=== PATIENT | male | born 1945 | race Caucasian/White ===

== ENCOUNTER 2022-03-07 11:54 | Outpatient (CLI) | payer MEDICARE, SELFPAY ==
--- NOTE | 2022-03-07 12:09 | ECG_ITS ---
Measurements Intervals [place] Rate: 98 P: 83 VT: 173 QRS: 75 QRSD: 98 T: 57 QT: 336 QTc: 429 Interpretive Statements SINUS RHYTHM VENTRICULAR PREMATURE COMPLEXES POSSIBLE LEFT ATRIAL ENLARGEMENT BORDERLINE R WAVE PROGRESSION, ANTERIOR LEADS BASELINE ARTIFACT- I, II, III, AVR, AVL, AVF, V4 BORDERLINE ECG NO PREVIOUS ECG AVAILABLE FOR COMPARISON Electronically Signed On 03-07-2022 17:31:41 [employer] by Jose Tillman D.O.
== END 2022-03-07 11:55 | disposition home or self-care (01) ==
LOC: ANHSURGERY 11:57
PROVIDERS: PCP Family Medicine; Visit Provider Urology
DX: E78.00 Pure hypercholesterolemia, unspecified (principal); Z01.818 Encounter for other preprocedural examination; R94.31 Abnormal electrocardiogram [ECG] [EKG]
CPT/HCPCS: 93005

== ENCOUNTER 2022-03-10 00:55 | Day surgery (SDC) | payer MEDICARE, SELFPAY ==
--- NOTE | 2022-03-01 07:27 | P.HP_ITS ---
History of Present Illness History of Present Illness Consent: Risks, benefits, and alternatives have been discussed and questions answered. Patient agrees to proceed with procedure. Chief complaint: Lt Spermatocele Narrative: Dave Pineda is a 76 year old male with a 5 year history of a swelling in his left scrotum. Examination and ultrasonography are consistent with a spermatocele. After he has completed radiation for lung cancer he now elects for a spermatocele likely. He is aware of the risk including, but not limited to, recurrent spermatoceles, recurrent hydroceles and scrotal hematoma Review of Systems Review of Systems: All systems reviewed & are unremarkable except as noted in HPI and below [facility] Family History Family History (Updated 11/14/17 @ 07:35 by DOCTOR UNKNOWN) Sibling Patient's sister is in good health Family history of cardiovascular disease Family history of Alzheimer's disease, Onset Age: 75 Malignant neoplasm of prostate, Onset Age: 74 Mother Acute myocardial infarction, Onset Age: 84 Father Family history of chronic obstructive pulmonary disease Family history of lung cancer Social History Social History Smoking status: Heavy tobacco smoker Meds Home Medications and Allergies Home Medications Medication Instructions Recorded Confirmed Type albuterol sulfate 2.5 mg/3 mL 2.5 mg (3 mL) inhalation Q6H #90 mL 06/24/19 Rx (0.083 %) solution for nebulization Allergies Allergy/AdvReac Type Severity Reaction Status Date / Time No Known Allergies Allergy Unverified 02/14/19 13:22 Exam Const: General: no acute distress Resp: Effort & Inspection: normal respiratory effort GI: Inspection: non-distended GI Palp: No abdominal tenderness and No Guarding due to palpation present (GI) Auscultation: normal bowel sounds : Scrotum: scrotal swelling Assessment and Plan Assessment and plan (1) Spermatocele: Code(s): N43.40 - Spermatocele of epididymis, unspecified Status: Acute Assessment and Plan: * left spermatocele ectomy
[2022-03-02 09:40] VITALS: BMI 21.5
--- NOTE | 2022-03-02 09:52 | PC.NURSE ---
PRE-OP INSTRUCTIONS, PLEASE READ CAREFULLY Report to the Outpatient Waiting Room, entrance under the green pavilion located off [facility], at time _0630_ on date _03/10/22_. Planned Procedure Time: _0830_. Time changes happen often and if your time is changed the preop area will call you the afternoon before. - You and your visitor will be asked to self-screen and do not enter if you have any COVID symptoms. - Only one visitor is requested with a max of two and NO children visitors are allowed at this time. - The patient visitor may be requested to leave or wait in car when not with patient due to distancing restrictions. - A mask is optional within the hospital. Patients may have clear liquids (water, carbonated beverages, clear teas, apple juice) until 3 hours prior to surgery (0530 AM) with a maximum of 20 ounces. - No food from midnight until time of surgery Take the following medications with a SIP of water the morning of surgery: _INHALERS_ Medications to discontinue per ANESTHESIA - _MULTIVITAMIN 3 DAYS PRIOR TO SURGERY, Date to take last dose 03/06/22_ Please no make-up, nail khmer, hairspray, perfume, deodorant, or body powder the day of surgery. No jewelry (including any body piercings) or valuables the day of surgery, leave them at home. Please take a shower or bath the night before, or the morning of, surgery with an antibacterial soap. Wear comfortable, loose fitting clothing. - Jewelry must be removed prior to entering the operating room. Rings and piercings that are not removed may be cut off. - The hospital will not accept responsibility for valuables. - Please leave all valuables, including medications, at home the day of surgery. If you are going home after surgery, a licensed laundry route driver must drive you home. - NO public transportation without another adult if you receive anesthesia. - We recommend that an adult stay with you for 24 hours following discharge. - We also recommend that you do not drive, make important decision, drink alcoholic beverages, or take any drugs that were not prescribed by your health care provider for at least 24 hours after your discharge time. Follow any additional instructions given to you from your surgeon. If you or anyone in your household have experienced Covid symptoms in the past week, please notify your surgeon or the nurse liaison at the phone number below for possible testing. Telephone instructions given to ____PT and asked if any additional questions and then verbalized understanding. Patient advised to call surgeon office or pre surgery nurse liaison [phone] if any additional questions.
[2022-03-10] VITALS (8 sets, daily range): BP systolic 120–143; BP diastolic 58–74; PULSE 77–108; RESP 14–20; TEMP 36.3–36.6; O2SAT 90–100
--- NOTE | 2022-03-10 06:45 | WPDHPUPDATE1 ---
History and Physical Update Update Date/Time: 03/10/22 06:45 History and Physical has been reviewed, including an updated exam of the patient. There are NO changes in the patient's condition. Risks, benefits, and alternatives have been discussed and questions answered. Patient agrees to proceed with procedure.
[2022-03-10] MEDS: LACTATED RINGERS 1,000 ML 30 ML IV CONT (07:20)
--- NOTE | 2022-03-10 07:41 | P.PNAN_ITS ---
Anes - Initial Pre Proc Eval Procedure: Operation Date: 03/10/22 08:30 Proposed Procedures p Left Spermatocelectomy - Dylon Arreola MD Date/Time: 03/10/22 07:41 Surgeon: Dylon Arreola MD Pre Op Diagnosis: Lt Spermatocele Patient Data Age: 76 Gender: M Height: 1.78 m Weight: 68.35 kg Last Vital Signs Temp 36.3 C L 03/10/22 07:30 Pulse 101 H 03/10/22 07:30 Resp 20 03/10/22 07:30 BP 136/63 03/10/22 07:30 Pulse Ox 90 03/10/22 07:30 O2 Del Method Room Air 03/10/22 07:30 Allergies Allergy/AdvReac Type Severity Reaction Status Date / Time No Known Allergies Allergy Unverified 03/10/22 06:43 Home Medications Medication Instructions Recorded Confirmed Type albuterol sulfate 2.5 mg/3 mL 2.5 mg inhalation Q6H PRN Wheezing 03/02/22 03/10/22 History (0.083 %) solution for nebulization fluticasone 250 mcg-salmeterol 50 2 inh inhalation BID 03/02/22 03/10/22 History mcg/dose blistr powdr for inhalation (Wixela Inhub) multivitamin 1 tablet PO DAILY 03/02/22 03/10/22 History simvastatin 20 mg tablet 20 mg HS 03/02/22 03/10/22 History tiotropium bromide 1.25 2 inh inhalation QAM 03/02/22 03/10/22 History mcg/actuation mist for inhalation (Spiriva Respimat) Patient hx anesthesia problems: none Family hx anesthesia problems: none Results Review: All pre-operative results and documents have been reviewed as part of the pre- operative evaluation. COUNTS INCLUDE 234 BEDS AT THE [facility] Family History Family History Sibling Patient's sister is in good health Family history of cardiovascular disease Family history of Alzheimer's disease, Onset Age: 75 Malignant neoplasm of prostate, Onset Age: 74 Mother Acute myocardial infarction, Onset Age: 84 Father Family history of chronic obstructive pulmonary disease Family history of lung cancer Social History Social History Smoking packs per day: 0.5 Smoking cigarettes per day: 10.0 Years smoked: 60 Smoking pack-years: 30.00 Smoking status: Current every day smoker Tobacco type: cigarettes Second hand tobacco smoke exposure: Yes Alcohol intake: current Alcohol use details: STATES VERY RARELY MAYBE 3 DRINKS IN LAST 2 YRS Substance use: never Substance use type: does not use Living arrangements: with family Spiritual care concerns: No Anes - Eval Final PreProcedure Day of Procedure 03/10/22 07:41 Patient weight: normal Heart: regular rate and rhythm Lungs: clear to auscultation Airway: Mallampati scale class II and other (edentulous) Neurological: alert and oriented Last oral intake: >/= 8 hours ASA classification: IV Emergent: no Anesthetic plan: proceed Anesthesia type and monitoring: general LMA and standard monitoring Results Review: All pre-operative results and documents have been reviewed as part of the pre- operative evaluation. Informed Consent: The patient's anesthetic plan and its attendant risks and benefits were discussed with the patient/family/POA. Questions were solicited and answers provided to the satisfaction of the patient/family/POA.
[2022-03-10] MEDS: ceFAZolin 2 GM/D5W 50 ML 2 GM/50 ML BAG IVPB (08:26)
[2022-03-10] MEDS: LIDOCAINE 1% BUFFERED WITH 8.4% SODIUM BICARB 1 ML SYRINGE 30 ML INFILTRATE (09:12)
--- NOTE | 2022-03-10 09:21 | P.OP_ITS ---
Procedure Note - Detailed Date of Procedure 03/10/22 Pre-op Diagnosis Lt Spermatocele Post-op Diagnosis Same Procedure Performed Left spermatocelectomy Surgeon Dylon Arreola MD Anesthesia General Description of Procedure The patient was brought to the operative suite where he was prepped and draped in routine sterile fashion while in a supine position after the uneventful induction of a general LMA anesthetic. An incision was made in the median raphe of the scrotum and dissection was carried into the left tunica vaginalis. There is no appreciable hydrocele but a moderate-large left spermatocele arising from the epididymis. This spermatocele is dissected from the spermatic cord and testicle to its origin from the epididymis. It is transected at its origin with care taken to avoid any injury to the testicle or epididymis. Care was taken to avoid compromise to vessels in the spermatic cord. The testicle was examined and found to be both visibly and palpably normal. The testicle was restore returned to an orthotopic positioned and pexed in a triangulated fashion with 4- 0 Prolene. The dartos muscle was closed with a running 4-0 chromic and the skin was likewise closed with a running 4-0 chromic. Estimated blood loss throughout this procedure was 20cc. Patient tolerated the procedure well and was taken to the recovery room in good condition. Estimated Blood Loss 20 Pathology Yes Complications No immediate complications Condition Stable Disposition PACU
[2022-03-10] MEDS: oxyCODONE HCL (*CRX) 5 MG TAB IR PO (10:20)
== END 2022-03-10 10:48 | disposition home or self-care (01) ==
PROVIDERS: PCP Family Medicine; Visit Provider Urology
PROC: (CPT 54840; principal; 2022-03-10 08:30)
DX: N43.41 Spermatocele of epididymis, single (principal); Z79.51 Long term (current) use of inhaled steroids; F17.210 Nicotine dependence, cigarettes, uncomplicated; Z85.118 Personal history of other malignant neoplasm of bronchus and lung; Z92.3 Personal history of irradiation
CPT/HCPCS: 54840; 88304; 93005; A9270; J0690; J1100; J2405; J2704; J3010; J7120

== ENCOUNTER 2023-10-27 12:51 | Outpatient (CLI) | payer MEDICARE, SELFPAY ==
--- NOTE | 2023-10-27 19:11 | WPDSIXMINUTE ---
Six Minute Walk Procedure Procedure Performed Pulmonary Stress Test (6 min walk) Six Minute Walk Six Minute Walk: DATE OF SERVICE: 10/27/2023 REQUESTING: Abdoul Dunn MD REASON FOR TESTING: rehab evaluation SIX MINUTE WALK This patient had oxygen at home for nocturnal use. This test was conducted per ATS guidelines. He was tested while breathing room air. No walking aid. The initial saturation was 92%, and initial heart rate was 89 bpm. The patient walked without stopping, completing 1000 feet/304.8 meters. The lowest saturation was 85% at 4 minutes with heart rate 116. Hypoxemia was persistent, 86% at 5 minutes and 86% at 6 minutes with heart rate 119 beats per minute. He recovered with a saturation 94% after resting 2 minutes with heart rate returning to baseline, 89 bpm. IMPRESSION: This is an abnormal study with arelis hypoxemia to 85%-86% at the end of 4 minutes persisting until the end of 6 minutes. He qualifies for supplemental oxygen with exertion. He needs to have a home oxygen evaluation to determine amount of oxygen required to maintain saturation 88% and above with exertion. Yudith Soto MD
== END 2023-10-27 12:52 | disposition home or self-care (01) ==
PROVIDERS: PCP Family Medicine
DX: J44.9 Chronic obstructive pulmonary disease, unspecified (principal); R94.2 Abnormal results of pulmonary function studies
CPT/HCPCS: 94618; J2405

== ENCOUNTER 2024-03-01 13:30 | Outpatient (RCR) | payer MEDICARE, SELFPAY | END 2024-03-01 23:59 | disposition home or self-care (01) | LOC: ANHCPREHAB 13:30 | PROVIDERS: PCP Family Medicine | DX: J44.9 Chronic obstructive pulmonary disease, unspecified (principal) | CPT/HCPCS: 94625 ==

== ENCOUNTER 2024-04-26 13:30 | Outpatient (RCR) | payer MEDICARE, SELFPAY | END 2024-04-26 14:48 | disposition home or self-care (01) | LOC: ANHCPREHAB 13:30 | PROVIDERS: PCP Family Medicine | DX: J44.9 Chronic obstructive pulmonary disease, unspecified (principal) | CPT/HCPCS: 94625 ==

== ENCOUNTER 2024-10-08 13:30 | Outpatient (RCR) | payer MEDICARE, SELFPAY ==
[2024-06-11 13:37] VITALS: BP 130/68; PULSE 91; RESP 18; O2SAT 96
[2024-06-11 14:10] VITALS: PULSE 91
== END 2024-10-08 23:59 | disposition home or self-care (01) ==
LOC: ANHCPREHAB 13:30
PROVIDERS: PCP Family Medicine; Visit Provider Internal Medicine Pulmonary Disease
DX: J44.9 Chronic obstructive pulmonary disease, unspecified (principal)
CPT/HCPCS: 94625

== ENCOUNTER 2024-11-26 13:30 | Outpatient (RCR) | payer MEDICARE, SELFPAY ==
[2024-10-10 00:04] VITALS: BP 130/68; PULSE 91; RESP 18; O2SAT 96
== END 2024-12-06 14:06 | disposition home or self-care (01) ==
LOC: ANHCPREHAB 13:30
PROVIDERS: PCP Family Medicine; Visit Provider Internal Medicine Pulmonary Disease
DX: J44.9 Chronic obstructive pulmonary disease, unspecified (principal)
CPT/HCPCS: 94625; G0239

== ENCOUNTER 2025-03-19 18:30 | Emergency (ER) | payer MEDICARE, SELFPAY ==
--- OUTSIDE RECORDS SUMMARY | 2025-03-19 13:00 | XMS_ITS | Encounter Summary ---
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 Procedure visit [facility] [address] [place] [id number] Debbi Sousa Sensorineural hearing loss (SNHL) of both ears (Primary Dx); Tinnitus of both ears Social History Tobacco Use Types Packs/Day Years Used Date Smoking Tobacco: Former Cigarettes 0.5 50 Q uit: 05/17/2024 Passive Smoke Exposure: Past Smokeless Tobacco: Never Comments:Used to smoke up to 2ppd Alcohol Use Standard Drinks/Week Comments Yes 0 (1 standard drink = 0.6 oz pur e alcohol) [facility] Utilities Answer Date Recorded In the past 12 months has e electric, gas, oil, or water company threatened to shut off services in your home? No 05/27/2024 Social Connection and Isolation Panel Answer Date Recorded In a typical week, how many times do you talk on the phone with family, friends, or neighbors? Three times a week 05/27/2024 How often do you get togethe r with friends or relatives? Three times a week 05/27/2024 How often do you attend chur ch or druze services? Never 05/27/2024 Do you belong to any clubs o r organizations such as gnosticist groups, unions, fraternal or athletic groups, or school groups? No 05/27/2024 How often do you attend meet ings of the clubs or organizations you belong to? Never 05/27/2024 Are you , , di vorced, , never , or living with a partner? 05/27/2024 Overall Financial Resource Strain (CARDIA) Answe r Date Recorded How hard is it for you to pa y for the very basics like food, housing, medical care, and heating? Not hard at all 05/27/2024 PHQ-2 Answer Date Recorded PHQ-2 Total Score (If total score is 3 or more points, staff should administer the PHQ-9) 0 08/15/2024 Hunger Vital Sign Answer Date Recorded Within the past 12 months, y ou worried that your food would run out before you got the money to buy more. Never true 05/27/19 25 Ran Out of Food in the Last Year Not on file 05/27/2024 PRAPARE - Transportation Answer Date Re corded In the past 12 months, has l ack of transportation kept you from medical appointments or from getting medications? No 05/11 In the past 12 months, has l ack of transportation kept you from meetings, work, or from getting things needed for daily living? No 05/27/2024 Housing Stability Vital Sign Answer Brandon e Recorded In the last 12 months, was t here a time when you were not able to pay the mortgage or rent on time? No 05/27/2024 In the past 12 months, how m any times have you moved where you were living? 0 05/27/2024 At any time in the past 12 m [facility], were you homeless or living in a long-term (including now)? No 05/27/2024 AUDIT-C Answer Date Recorded Q1: How often do you have a drink containing alc ohol? Monthly or less 01/06/2025 Q2: How many drinks containi ng alcohol do you have on a typical day when you are drinking? 1 or 2 01/06/2025 Q3: How often do you have si x or more drinks on one occasion? Never 01/06/2025 Personal Safety Answer Date Recorded Have you ever been in or are you currently in a harmful physical or emotional relationship or is someone making you feel afraid or unsafe? Denies 11/08/2024 Sex and Gender Information Value Date Recorded Sex Assigned at Not on file Legal Sex Male 8:24 AM CDT Gender Identity Not on file Sexual Orientation Not on file documented as of this encounter Procedure Notes * Debbi Sousa - 03/19/2025 1:00 PM CST Procedures Debbi Guido, [facility] PATIENT: Dave Fofana : 1945 TYPE OF SERVICE: Audiologic Evaluation DATE OF SERVICE: 03/19/2025 Referring physician: Patient referred by Dr. Ferny Worthy History: Patient reported presence of constant, ringing tinnitus in both ears. Patient denied personal concern with his hearing, but stated that his complains that he has trouble hearing often. He denied aural pain/pressure or dizziness at this time. Otoscopy: Ear canals partially occluded with cerumen bilaterally. Tympanometry: Unable to maintain effective seal for either ear. Audiometry: Pure tone testing revealed mild rising to normal sloping to severe sensorineural hearing loss for the right ear and mild rising to normal sloping to profound sensorineural hearing loss for the left ear. Word Recognition Score (WRS) in the right ear is 68%, WRS in the left ear is 52%. Counseling: Patient was counseled on audiogram results. Recommendations: -Patient will follow-up with Dr. Ferny Worthy for test results and recommendations. -Repeat testing per Doctor request. -Schedule hearing aid evaluation after receiving medical clearance and patient is motivated. OMER SERVICE SUPERVISOR documented in this encounter Plan of Treatment Not on file documented as of this encounter Visit Diagnoses Diagnosis Sensorineural hearing loss (SNHL) of both ears- Primary Tinnitus of both ears Unspecified tinnitus documented in this encounter Care Teams Insurance Professional Relationship Specialty Start Date End Date Abdoul Dunn MD [address] [id number] PCP - General Family Medicine 01/06/25 [place] [address] [place] [address] [phone] Consulting Physician Pulmonary Disease 11/04/24 Tian Davis MD [facility] [address] Radiation Oncologist Radiation Oncology 12/31/24 documented as of this encounter
--- OUTSIDE RECORDS SUMMARY | 2025-03-19 13:30 | XMS_ITS | Encounter Summary ---
Author Organization [facility] Address [address] [place] [address] Phone Care Team Providers Care Associate Veterinarian Name Role Phone Shreya Ramirez MD Unavailable [phone] Tian Davis MD Unavailable [phone] Abdoul Dunn MD Primary Care Provider Reason for Visit * Reason Comments Tinnitus X 1 year Encounter Details Date Type Department Care Team (Late st Contact Info) Description 03/19/2025 1:30 PM MANUFACTURING SUPERVISOR Office Visit [facility] [address] [place] [phone] Ferny Worthy MD [address] [place] [address] [place] [address] Tinnitus of both ears (Primary Dx); Sensorineural hearing loss (SNHL) of both ears; Bilateral impacted cerumen Social History Tobacco Use Types Packs/Day Years Used Date Smoking Tobacco: Former Cigarettes 0.5 50 Q uit: 05/17/2024 Passive Smoke Exposure: Past Smokeless Tobacco: Never Comments:Used to smoke up to 2ppd Alcohol Use Standard Drinks/Week Comments Yes 0 (1 standard drink = 0.6 oz pur e alcohol) [facility] Utilities Answer Date Recorded In the past 12 months has [employer], gas, oil, or water company threatened to [...] often do you attend chur ch or cheondoism services? Never 05/27/2024 Do you belong to any clubs o r organizations such as voodoo groups, unions, fraternal or athletic groups, or [...] any time in the past 12 m [facility], were you homeless or living in a retirement (including now)? No 05/27/2024 AUDIT-C Answer Date [...] on file documented as of this encounter Last Filed Vital Signs Vital Sign Reading Time Taken Comments Blood Pressure - - Pulse - - Temperature - - Respiratory Rate 17 03/19/2025 1:39 PM MANUFACTURING SUPERVISOR Oxygen Saturation - - Inhaled Oxygen Concentration - - Weight 70.3 kg (155 lb) 03/19/2025 1:39 PM MANUFACTURING SUPERVISOR Height 177.8 cm (5' 10) 03/19/2025 1:39 PM MANUFACTURING SUPERVISOR Body Mass Index 22.24 03/19/2025 1:39 PM MANUFACTURING SUPERVISOR documented in this encounter Progress Notes * Ferny Worthy MD - 03/19/2025 1:30 PM CST Images from the original note were not included. Dave Fofana is a 79 y.o. male was seen in the office today. Primary care provider is Abdoul Dunn MD . Chief Complaint: Chief Complaint Patient presents with Tinnitus X 1 year HPI: He comes to clinic today for evaluation of ringing in the ears. He also has hearing loss. His complains quite a bit they does not hear well. She asked to talk very loudly. She is urged him to get a hearing test. He is here with his niece today. 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 He was in the [employer]. Afterwards he worked in the [employer]. He feels like his hearing loss has been gradual. I have reviewed past medical, surgical, family history as well as allergies and medications. Review of Systems Review of Systems Constitutional: Negative for chills, fever and unexpected weight change. HENT: Negative for drooling and facial swelling. Eyes: Negative for pain and discharge. Respiratory: Negative for wheezing and stridor. Cardiovascular: Negative for leg swelling. Gastrointestinal: Negative for diarrhea and vomiting. Endocrine: Negative for polydipsia. Genitourinary: Negative for flank pain. Musculoskeletal: Negative for myalgias. Skin: Negative for color change. Allergic/Immunologic: Negative for immunocompromised state. Neurological: Negative for tremors and seizures. Psychiatric/Behavioral: Negative for hallucinations and self-injury. Vital Signs: Resp 17 Ht 177.8 cm (5' 10) Wt 70.3 kg (155 lb) BMI 22.24 kg/m?? PHYSICAL EXAMINATION: GENERAL: Normal NEURO/PSYCH: Affect is normal. Alert and oriented. Extraocular muscles are intact. Cranial Nerves: Cranial nerves II-VII and IX-XII are intact and symmetric. HEAD/FACE: Normocephalic; atraumatic. No facial skin lesions. Facial strength is 5/5 and the face is symmetric. EARS : External ears have no skin lesions. Auricles are regularly set on the head. Hearing is grossly intact. Moderate cerumen impactions. Right: Normal canal. Tympanic membrane intact and mobile. Left: Normal canal. Tympanic membrane intact and mobile. NOSE: External nose has no skin lesions. Nasal dorsum is essentialy midline. Nasal septum is nonobstructive. Inferior and middle turbinates are normal size. No mucosal lesions or polyps are seen on either side. ORAL CAVITY/ OROPHARYNX: Skin of the lips is without lesions. Normal oral vestibule. Oral mucosa ismoist without lesions. Tongue and floor of mouth are without lesions or masses. Palate has no lesions and elevates symmetrically. Tonsils are negative. Oropharynx is clear without erythema or exudate. NECK: Trachea is midline. Thyroid is normal in size with no apparent nodules. Larynx: Base of tongue is symmetric without masses. Larynx was not examined. Salivary Glands: The submandibular glands are non-tender without masses. The parotid glands are non-tender without edema or masses. There is clear saliva flow from Stensen's and Iosco's ducts bilaterally. LYMPHATIC: No cervical lymphadenopathy. MUSCULOSKELATAL: Ambulates without difficulty. Neck full range of motion. RESPIRATORY: Breathing comfortably without audible wheeze, stertor or stridor. AUDIOLOGY - Scan on 03/19/2025 1:24 PM: Audiogram PROCEDURE: Both ears were examined and cleaned under magnification. I used a loop and forceps to remove a large amount of cerumen on both sides. Patient tolerated this well. ASSESSMENT & PLAN: Sensorineural hearing loss (SNHL) of both ears He has moderate to severe mid to high-frequency bilateral sensorineural hearing loss. I talked withhim about this. This has probably due to noise exposure as well as aging. I think he would benefit from hearing aids. We talked about possibly getting them through [facility] or through his [facility] advantage plan. I strongly recommend that. He will look into it. He also will talk with our mixing operator possibly. Bilateral impacted cerumen Both ears were cleaned without difficulty. Quite a bit more wax on the left than on the right. Tinnitus of both ears I talked with the patient about tinnitus. Typically it is due to hearing loss but there are other potential reasons for it. It can occur due to cervical strain or TMJ disorder. Also potentially due to tumors which are usually benign. Unfortunately there is no widely accepted or successful treatmentfor it. There are a lot of bxls-wbx-cusymss remedies which generally do not help and I really do not recommend any of them. In his case I think that his hearing loss is causing this. Sometimes a hearing aid can help. Ferny Worthy MD FACTURING SUPERVISOR documented in this encounter Miscellaneous Notes * Assessment & Plan Note - Ferny Worthy MD - 03/19/2025 2:00 PM MANUFACTURING SUPERVISOR Associated Problem(s): Tinnitus of both ears I talked with the patient about tinnitus. Typically it is due to hearing loss but there are other potential reasons for it. It can occur due to cervical strain or TMJ disorder. Also potentially due to tumors which are usually benign. Unfortunately there is no widely accepted or successful treatmentfor it. There are a lot of aacg-bsb-qjeukpv remedies which generally do not help and I really do not recommend any of them. In his case I think that his hearing loss is causing this. Sometimes a hearing aid can help. FACTURING SUPERVISOR * Assessment & Plan Note - Ferny Worthy MD - 03/19/2025 1:59 PM MANUFACTURING SUPERVISOR Associated Problem(s): Bilateral impacted cerumen Both ears were cleaned without difficulty. Quite a bit more wax on the left than on the right. FACTURING SUPERVISOR * Assessment & Plan Note - Ferny Worthy MD - 03/19/2025 1:59 PM MANUFACTURING SUPERVISOR Associated Problem(s): Sensorineural hearing loss (SNHL) of both ears He has moderate to severe mid to high-frequency bilateral sensorineural hearing loss. I talked withhim about this. This has probably due to noise exposure as well as aging. I think he would benefit from hearing aids. We talked about possibly getting them [facility] or through his Medicare advantage plan. I strongly recommend that. He will look into it. He also will talk with our mixing operator possibly. FACTURING SUPERVISOR documented in this encounter Plan of Treatment Not on file documented as of this encounter Visit Diagnoses Diagnosis Tinnitus of both ears- Primary Unspecified tinnitus Sensorineural hearing loss (SNHL) of both ears Bilateral impacted cerumen Impacted cerumen documented in this encounter Care Teams Associate Veterinarian Relationship Specialty Start Date End Date Abdoul Dunn MD [address] [address] PCP - General Family Medicine 01/06/25 Shreya Ramirez MD [address] [place] [address] [phone] Consulting Physician Pulmonary Disease 11/04/24 Tian Davis MD [address] [facility] [address] [place] [address] Radiation Oncologist Radiation Oncology 12/31/24 documented as of this encounter
--- NOTE | 2025-03-19 18:43 | ED.URI ---
HPI - URI/Sore Throat General Chief Complaint: Upper Respiratory Infection Stated Complaint: ? covid Time Seen by Provider: 03/19/25 18:59 Source: patient and RN notes reviewed Mode of arrival: ambulatory Limitations: no limitations History of Present Illness HPI Narrative: 79-year-old male history of COPD who is oxygen dependent presents with concern for exposure to COVID. He reports his is currently hospitalized and he has been visiting her, she just tested positive for COVID. He denies any symptoms, denies new cough, shortness of breath, stuffy nose, body aches, chills, fever, sweats. MD elicited complaint: other (Exposure COVID) Related Data Home Medications ?Medication ?Instructions ?Recorded ?Confirmed ?Last Taken ?Type albuterol sulfate 2.5 mg/3 mL 2.5 mg inhalation Q6H PRN Wheezing 03/02/22 03/10/22 Unknown History (0.083 %) solution for nebulization fluticasone 250 mcg-salmeterol 50 2 inh inhalation BID 03/02/22 03/10/22 03/10/22 05:00 History mcg/dose blistr powdr for inhalation (Wixela Inhub) multivitamin 1 tablet PO DAILY 03/02/22 03/10/22 03/06/22 History simvastatin 20 mg tablet 20 mg HS 03/02/22 03/10/22 03/06/22 History tiotropium bromide 1.25 2 inh inhalation QAM 03/02/22 03/10/22 03/10/22 05:00 History mcg/actuation mist for inhalation (Spiriva Respimat) B6 0.85 mg-folic 200 tablet PO 03/19/25 Unknown History yfv-Q29-klrpfnC17-yyspit-howryjhqjgjm oral chewable tablet (Neuriva Plus) magnesium oxide 250 mg PO DAILY 03/19/25 03/19/25 Unknown History intysxuyroxv-qriezjd-ogrkz acid 1 tablet PO DAILY 03/19/25 03/19/25 Unknown History 400 mcg-lutein 250 mcg chewable tablet (Centrum Silver) Allergies Allergy/AdvReac Type Severity Reaction Status Date / Time No Known Allergies Allergy Verified 03/19/25 18:49 Review of Systems Review of Systems: CONSTITUTIONAL: Denies malaise, chills, sweats, or fever. EYES: Denies visual changes, redness, or discharge. ENT: Denies new rhinorrhea, congestion, sinus pain, otalgia and sore throat. CARDIOVASCULAR: Denies chest pain, palpitations, or edema. RESPIRATORY: Denies new cough. Denies dyspnea. GASTROINTESTINAL: Denies abdominal pain, nausea, vomiting, diarrhea SKIN: Denies rash or itching. MUSCULOSKELETAL: Denies myalgia. NEUROLOGIC: Denies headache. All systems reviewed & are unremarkable except as noted in HPI and below PMFSH Family History Family History (Updated 06/11/24 @ 13:15 by Nadine Gomez RN) Sibling Family history of cardiovascular disease Malignant neoplasm of prostate, Onset Age: 74 Patient's sister is in good health Family history of Alzheimer's disease, Onset Age: 75 Mother Acute myocardial infarction, Onset Age: 84 Family history of cardiovascular disease Father Family history of lung cancer Family history of chronic obstructive pulmonary disease Acute myocardial infarction Family history of cardiovascular disease Social History Social History Smoking packs per day: 1 Smoking cigarettes per day: 20.0 Years smoked: 65 Smoking pack-years: 65.00 Smoking status: Former smoker Tobacco type: cigarettes Second hand tobacco smoke exposure: No Additional smoking assessment comments: now smokes 4 cigarettes per day Alcohol intake: current Alcohol use details: STATES VERY RARELY MAYBE 3 DRINKS IN LAST 2 YRS Substance use: never Substance use type: does not use Living arrangements: with family Spiritual care concerns: No Comments At time of signature, agree with nursing past medical, surgical, social and family history. There is no relevant family history pertinent to the presenting complaint Exam Narrative: GENERAL: Well-appearing, well-nourished, and in no acute distress. HEAD: Normocephalic EYES: PERRLA, conjunctivae clear ENT: Nares clear. Mucous membranes moist. NECK: Supple. No lymphadenopathy CHEST: Mild scattered wheeze, otherwise Clear to auscultation, breath sounds equal. No rhonchi, rales, or stridor. No respiratory distress, speaks in full sentences. HEART: Regular rate and rhythm. No murmur heard. SKIN: Warm, dry, no rash. NEURO: Alert and oriented x3. PSYCH: Normal mood and affect Course Course Emergency Course: Patient is aware of diagnosis, understands and agrees to treatment plan. Anticipatory guidance given. Patient agrees to follow-up as directed and is aware of reasons to seek care at the emergency department. Portions of this record may have been created with voice recognition software Level of Care: [facility] Visit MDM Differential Diagnosis Differential Diagnosis: I evaluated this patient [facility]. History is obtained from patient who is an independent historian and physical exam was performed.? Available medical records were reviewed. ? Exam findings and relevant testing show no acute concerns or changes; patient is non-toxic appearing and is in no distress. ? Differential diagnosis considered: Villarreal virus, strep pharyngitis, allergic rhinitis, upper respiratory tract infection, sinusitis, rhinosinusitis, nasopharyngitis. viral pharyngitis, otitis media, otitis externa, pneumonia, bronchitis, viral cough syndrome, viral syndrome, and influenza. Differential diagnosis and treatment plan were discussed with the patient. Patient agrees with discussion and after shared medical decision making agrees with plan of care. All questions were answered to the patient's satisfaction. Patient is appropriate for outpatient treatment and follow-up. Discharge Plan Discharge Clinical Impression: Close exposure to COVID-19 virus Patient Disposition: Home Condition: Stable Instructions: COVID-19: Slow the Coronavirus Spread (ED) Additional Instructions: Your rapid COVID test is negative. Antivirals are not indicated for COVID if you do not have a positive test. You can take the following tpnh-viy-idspwld supplements to help support your immune system: Energen-C Zicam or zinc Please wear a mask when exposed to your family member with COVID. I recommend buying a COVID and flu test from the drugstore and testing herself tomorrow and the next day. If you develop any symptoms such as fever, cough, shortness of breath, headache, nasal congestion I would recommend testing your self, if your positive you should be seen by her doctor and at that time he you may be prescribed an antiviral medicine Patient Language: Slovenian Prescriptions: No Action Centrum Silver 400-250 mcg tablet,chewable 1 tablet PO DAILY magnesium oxide 250 mg magnesium tablet 250 mg PO DAILY Neuriva Plus 0.85 mg-200 mcg-1.2 mcg tablet,chewable PO multivitamin Tablet 1 tablet PO DAILY fluticasone propion-salmeterol [Wixela Inhub] 250-50 mcg/dose blister with device 2 inh INHALATION BID simvastatin 20 mg tablet 20 mg HS Spiriva Respimat 1.25 mcg/actuation mist 2 inh INHALATION QAM albuterol sulfate 2.5 mg /3 mL (0.083 %) solution for nebulization 2.5 mg INHALATION Q6H PRN (Reason: Wheezing) Follow-up/Referrals: Mona,Abdoul Pulido MD [Primary Care Provider, Unknown] Time of Disposition: 19:12
[2025-03-19 18:46] VITALS: BP 134/86; PULSE 128; RESP 20; TEMP 37.3; O2SAT 99
[2025-03-19 19:05] LABS: EDCOVIDSCREEN Negative (Negative); EDINFLUASCREEN Negative (Negative); EDINFLUBSCREEN Negative (Negative)
--- OUTSIDE RECORDS SUMMARY | 2025-03-19 21:15 | XMS_ITS | Clinical Summary ---
Author Organization [facility] at [facility] Address [address] [place] [address] Care Team Providers Care White Lead Grinder Name Role Phone Shreya Ramirez MD Unavailable Tian Davis MD Unavailable [phone] Abdoul Dunn MD Primary Care Provider [phone] Allergies No known active allergies Medications multivitamin tablet Take 1 tablet by mouth daily Active magnesium oxide 240 mg magnesium powder in packet Take by mouth Active tiotropium bromide (Spiriva Respimat) 1.25 mcg/actuation inhaler USE 2 INHALATIONS BY MOUTH DAILY 12 g 3 Active Additional Information Patient not taking.Reported on 03/19/2025 fluticasone propion-salmeter oL (ADVAIR DISKUS) 250-50 mcg/dose diskus inhaler Inhale 1 puff 2 (two) times a day Rinse mouth with water after use. Do not swallow. Wixela Active albuterol 2.5 mg/0.5 mL solution for nebulization Take 0.5 mL (2.5 mg total) by nebulization 4 (four) times a day USES BID AT HOME PER REPORT Active ipratropium-albu teroL (DUO-NEB) 0.5-2.5 mg/3 mL nebulizer solutionIndicati ons:Chronic obstructive pulmonary disease, unspecified COPD type (HCC) USE 1 VIAL VIA NEBULIZER EVERY 6 HOURS 3 mL 2 5 Active gabapentin (NEURONTIN) 300 mg capsule Take 1 capsule (300 mg total) by mouth 2 (two) times a day 180 capsule 3 5 Active simvastatin (ZOCOR) 20 mg tablet TAKE 1 TABLET BY MOUTH EVERY NIGHT 100 tablet 1 5 Active Active Problems Problem Noted Date Diagnosed Date Tinnitus of both ears 03/19/2025 Assessment & Plan (03/19/2025 2:00 PM NUB CARD TENDER): I talked with the patient about tinnitus. Typically it is due to hearing loss but there are other potential reasons for it. It can occur due to cervical strain or TMJ disorder. Also potentially due to tumors which are usually benign. Unfortunately there is no widely accepted or successful treatment for it. There are a lot of [id number] remedies which generally do not help and I really do not recommend any of them. In his case I think that his hearing loss is causing this. Sometimes a hearing aid can help. Sensorineural hearing loss (SNHL) of both ears 1 05/20/2024 Assessment & Plan (03/19/2025 1:59 PM NUB CARD TENDER): He has moderate to severe mid to high-frequency bilateral sensorineural hearing loss. I talked with him about this. This has probably due to noise exposure as well as aging. I think he would benefit from hearing aids. We talked about possibly getting them [facility] or through his Medicare advantage plan. I strongly recommend that. He will look into it. He also will talk with our operating room registered nurse possibly. Bilateral impacted cerumen 03/19/2025 Assessment & Plan (03/19/2025 1:59 PM NUB CARD TENDER): Both ears were cleaned without difficulty. Quite a bit more wax on the left than on the right. Spermatocele 02/19/2025 Peripheral polyneuropathy 06/14/2024 Assessment & Plan (06/14/2024 2:26 PM NUB CARD TENDER): Chronic, worsening Initiate gabapentin 300 mg nightly patient instructed to take around 1 hour prior to bed Follow-up in 3 weeks Mediastinal lymphadenopathy 05/24/2024 Exposure to potentially hazardous substance 05/11 Multiple pulmonary nodules 03/28/2023 Seasonal allergic rhinitis due to pollen 022 Other hydrocele 07/21/2021 Medicare annual wellness visit, subsequent 07/02 PVD (peripheral vascular disease) 12/26/2019 Pulmonary nodule 06/13/2018 Assessment & Plan (10/25/2020 11:19 AM CDT): Pulmonary nodules have been stable for more than [address] scan of the chest for lung cancer screening in October 2021. Assessment & Plan (10/17/2019 11:18 AM CDT): Pulmonary nodules have been stable. Will repeat CT scan of the chest in 1 year. Assessment & Plan (04/29/2019 2:27 PM NUB CARD TENDER): Pulmonary nodules have been stable. Discussed with interventional Radiology, nodules are very high risk for pneumothorax. Will continue to monitor closely. Repeat CT scan of the chest in 6 months. Assessment & Plan (03/17/2019 10:27 AM NUB CARD TENDER): Right lower lobe pulmonary nodule is likely infectious. Rest of the pulmonary nodules have been stable since July of this year. PET scan did not show abnormal FDG uptake in the pulmonary nodules including the largest 1 in lingula. I will repeat a CT scan of the chest in 6-8 weeks for follow-up on right lower lobe pulmonary nodule. If it persists or increases in size will need biopsy. Assessment & Plan (08/26/2018 6:43 PM CDT): See note Smoking greater than 40 pack years 10/16/2017 Assessment & Plan (10/25/2020 11:19 AM CDT): Patient was advised to quit smoking. Assessment & Plan (10/17/2019 11:18 AM CDT): Patient is still smoking. He was advised to quit smoking. Assessment & Plan (04/29/2019 2:27 PM NUB CARD TENDER): Patient was advised to quit smoking. Assessment & Plan (03/17/2019 10:28 AM NUB CARD TENDER): Patient has smoked 2 packs per day for 50 years and is still smoking. He was advised to quit smoking. Assessment & Plan (08/26/2018 6:43 PM CDT): Patient advised on smoking cessation. Counseled on ways to cut back and advised to call office if would like advice on methods and medications used to help quit smoking. This is a chronic problem and would always recommend reducing amount of smoking in hopes of quitting completely. OA (osteoarthritis) 11/30/2016 COPD (chronic obstructive pulmonary disease) Assessment & Plan (06/14/2024 2:24 PM NUB CARD TENDER): Chronic, with recent exacerbation resolved Continue close follow-up with pulmonology Continue supplemental home oxygen of 3 L during the day and 5 L at night Continue Spiriva inhaler 1.25 mcg per actuation twice daily and Advair 1 puff twice daily Continue DuoNeb every 6 hours as needed for wheezing or shortness of breath Start ocean saline nasal spray 2 sprays each nostril at least daily to help keep the nasal passages moisturized from supplemental oxygen. Patient should report back to office with worsening symptoms Assessment & Plan (10/25/2020 11:19 AM CDT): Continue with Symbicort, Spiriva and p.r.n. duo nebs. Assessment & Plan (10/17/2019 11:18 AM CDT): Continue with Symbicort and Spiriva. Assessment & Plan (04/29/2019 2:27 PM NUB CARD TENDER): Continue with Advair and Spiriva. Assessment & Plan (03/17/2019 10:28 AM NUB CARD TENDER): Continue with Symbicort, Spiriva and p.r.n. albuterol inhaler. Assessment & Plan (08/26/2018 6:43 PM CDT): Cont inhalers, noO2, , stable Hyperlipidemia 10/28/2015 Resolved Problems Problem Noted Date Diagnosed Date Resolved Date Lung nodule 10/21/2024 02/19/2025 Shortness of breath 05/25/2024 08/16/19 25 Multifocal pneumonia 02/22/2023 024 Cellulitis of multiple sites of head and neck 07/28/19 23 07/27/2022 07/27/2022 Contact dermatitis due to no nmedicinal chemical 07/27/2022 07/27/2022 07/27/2022 Allergic reaction 09/12/2019 07/27/2022 Nail fungus 12/20/2018 07/27/2022 Encounters Date Type Department Care Team Description 03/19/2025 1:30 PM NUB CARD TENDER Office Visit [facility] Otolaryngology [address] [place] [phone] Ferny Worthy MD Tinnitus of both ears (Primary Dx); Sensorineural hearing loss (SNHL) of both ears; Bilateral impacted cerumen 03/19/2025 1:00 PM NUB CARD TENDER Procedure visit [facility] [place] [place] [facility] Otolaryngology [address] [place] [phone] Debbi Sousa Sensorineural hearing loss (SNHL) of both ears (Primary Dx); Tinnitus of both ears 02/19/2025 1:15 PM NUB CARD TENDER Office Visit [facility] Family Medicine at [address] [phone] Abdoul Dunn MD Centrilobular emphysema (Primary Dx); Chronic respiratory failure with hypoxia (HCC); Mixed hyperlipidemia; Multiple pulmonary nodules; Peripheral polyneuropathy; PVD (peripheral vascular disease); Need for immunization against influenza; Encounter for hearing examination, unspecified whether abnormal findings 02/13/2025 Results Follow-Up [facility] Medical [facility] at [address] [phone] Zena Yee PA CBC with auto differential, Comprehensive metabolic panel, Lipid panel, Additional followed-up results: 2 02/12/2025 9:00 AM NUB CARD TENDER Lab [address] [address] Medicare annual wellness visit, subsequent; Chronic obstructive pulmonary disease, unspecified COPD type (HCC); Mixed hyperlipidemia 02/04/2025 10:15 AM CDT Treatment [facility] Office Building 2 Radiation Oncology [address] [place] [phone] Tian Davis MD 02/04/2025 Completion of Therapy [facility] Office Building 2 Radiation Oncology [address] [place] [phone] Tian Davis MD Malignant neoplasm of upper lobe of right lung (HCC) (Primary Dx) 02/04/2025 Orders Only RAD ONC TREATMENTS Miscellaneous, Not In File 02/03/2025 11:30 AM CDT Treatment [facility] Office Building [address] Radiation On[address] [place] [phone] 02/03/2025 Orders Only RAD ONC TREATMENTS Miscellaneous, Not In File 01/31/2025 10:00 AM CDT Treatment [facility] Office Building 2 Radiation Oncology [address] [place] [address] 01/31/2025 OTV [facility] Office [facility] 2 Radiation Oncology [address] [place] [phone] Tian Davis MD 01/31/2025 Orders Only RAD ONC TREATMENTS Miscellaneous, Not In File 01/30/2025 12:30 PM CDT Treatment [facility] Building 2 Radiation Oncology [address] [place] [address] 01/30/2025 Orders Only RAD ONC TREATMENTS Miscellaneous, Not In File 01/29/2025 2:00 PM CDT Treatment [facility] 2 Radiation Oncology [address] [place] [address] 01/29/2025 Orders Only RAD ONC TREATMENTS Miscellaneous, Not In File 01/28/2025 8:45 AM CDT Treatment [facility] 2 Radiation Oncology [address] [place] [address] 01/28/2025 Orders Only RAD ONC TREATMENTS Miscellaneous, Not In File 01/27/2025 8:45 AM CDT Treatment [facility] Building 2 Radiation Oncology [address] [place] [address] 01/27/2025 Orders Only RAD ONC TREATMENTS Miscellaneous, Not In File 01/24/2025 8:45 AM CDT Treatment [facility] Building 2 Radiation Oncology [address] [place] [address] 01/24/2025 OTV [facility] Building 2 Radiation Oncology [address] [place] [address] Reese Scott MD PhD 01/24/2025 Orders Only RAD ONC TREATMENTS Miscellaneous, Not In File 01/23/2025 11:15 AM CDT Treatment [facility] Building 2 Radiation Oncology [address] [place] [phone] 01/23/2025 Orders Only RAD ONC TREATMENTS Miscellaneous, Not In File 01/22/2025 9:30 AM CDT Clinical Support [facility] Building [address] Radiation Oncology [address] [place] [address] Lung nodule (Primary Dx) 01/22/2025 8:45 AM CDT Treatment [facility] Building 2 Radiation Oncology [address] [place] [address] 01/22/2025 Orders Only RAD ONC TREATMENTS Miscellaneous, Not In File 01/21/2025 8:45 AM CDT Treatment [facility] Building 2 Radiation Oncology [address] [place] [address] Dulce Reardon MD 01/21/2025 Orders Only RAD ONC TREATMENTS Miscellaneous, Not In File 01/20/2025 4:00 PM CDT Treatment [facility] Building 2 Radiation Oncology [address] [place] [phone] Tian Davis MD 01/20/2025 3:45 PM CDT Treatment [facility] Building 2 Radiation Oncology [address] [place] [address] Tian Davis MD 01/20/2025 Orders Only RAD ONC TREATMENTS Miscellaneous, Not In File 01/16/2025 9:20 PM CDT Treatment [facility] Building 2 Radiation Oncology [address] [place] [address] 01/06/2025 10:30 AM CDT Treatment [facility] Building 2 Radiation Oncology [address] [place] [address] Tian Davis MD 01/06/2025 10:00 AM CDT Consult [facility] Building 2 Radiation Oncology [address] [place] [address] 76227 Tian Davis MD Malignant neoplasm of upper lobe of right lung (HCC) (Primary Dx) 01/03/2025 12:52 PM CDT - 01/03/2025 11:59 PM CDT Hospital Encounter [facility] Building [address] [place] [phone] Pulmonary nodule Discharge Disposition: Discharge to home or self care 12/18/2024 Telephone [facility] Building 2 Radiation Oncology [address] [place] [address] Amanda Steele, ARRT 12/18/2024 Orders Only [facility] Building 2 Radiation Oncology [address] [place] [address] Tian Davis MD Pulmonary nodule (Primary Dx) from Last 3 Months Immunizations Immunization Administration Dates Next Due Influenza, Quad, Adjuvantate d, Intramuscular 01/08/2022,01/08/2021 Influenza, Quadrivalent, Hig h Dose, Preservative Free, Intrr 01/26/2023 Influenza, Quadrivalent, Rec ombinant, Egg Free, Preservative Free, Intramuscular 12/26/2019 Influenza, Trivalent, Adjuva nted, Intramuscular 02/15/2019,01/20/2018 Influenza, Trivalent, High D ose, Split, Preservative Free, Intramuscular 02/19/2025,01/04/2024,05/08/2017 Influenza, Unspecified 01/09/2024,2021,04/10/2021(Defer red: Patient Refused),04/10/2021(Deferred: Patient Refused),01/08/2021 Pfizer SARS-CoV-2 Monovalent Vaccination (12+ Yrs) PURPLE 01/05/2022,06/26/2020,06/04/2020 Pfizer Sars-Cov-2 Bivalent V accination (12+ YRS) 11/16/2022,01/08/2022 Pneumococcal Conjugate PCV 13 01/20/2018 Pneumococcal Polysaccharide PPV23 02/15/2019 RSV Vaccine, Pref, Recombina nt, Subunit, Adjuvanted, PF, IM (Arexvy) 03/24/2023 Tdap 03/01/2022 Surgical History Surgery Date Site/Laterality Comments HERNIA REPAIR INGUINAL; CANNOT RECALL LATERALITY BRONCHOSCOPY 05/24/2024 Medical History Medical History Date Comments Hyperlipidemia Pulmonary nodule 06/13/2018 COPD (chronic obstructive pu lmonary disease) 10/28/2015 OA (osteoarthritis) 11/30/2016 PVD (peripheral vascular disease) 12/26/2019 Exposure to potentially haza rdous substance 05/21/2024 On supplemental oxygen by nasal cannula Wears 2-3 liters at home; Wears 3-4 liters with activity Tinnitus Sinusitis HL (hearing loss) Family History Medical History Relation Name Comments Diabetes Brother 1 Hypertension Brother 1 Alzheimer's disease Brother 2 Prostate cancer Brother 2 Prostate cancer Brother 3 Alcohol abuse Father COPD Father Alzheimer's disease Mother No Known Problems Sister Relation Name Status Comments Brother 1 Alive Brother 2 Brother 3 Father Maternal Grandfather Maternal Grandmother Mother Paternal Grandfather Paternal Grandmother Sister Alive Social History Tobacco Use Types Packs/Day Years Used Date Smoking Tobacco: Former Cigarettes 0.5 50 Q uit: 05/17/2024 Passive Smoke Exposure: Past Smokeless Tobacco: Never Tobacco Cessation:Counseling Given: No Comments:Used to smoke up to 2ppd Alcohol Use Standard Drinks/Week Comments Yes 0 (1 standard drink = 0.6 oz pur e alcohol) [facility] Utilities Answer Date Recorded In the past 12 months has th e electric, gas, oil, or water company [...] often do you attend chur ch or roman catholic services? Never 05/27/2024 Do you belong to any clubs o r organizations such as sikh groups, unions, fraternal or athletic groups, or [...] any time in the past 12 m [facility], were you homeless or living in a care home (including now)? No 05/27/2024 AUDIT-C Answer Date [...] on file Sexual Orientation Not on file Last Filed Vital Signs Vital Sign Reading Time Taken Comments Blood Pressure 126/78 02/19/2025 1:00 PM NUB CARD TENDER Pulse 96 02/19/2025 1:00 PM NUB CARD TENDER Temperature 36.3 C (97.3 F) 02/19/2025 1:00 PM NUB CARD TENDER Respiratory Rate 17 03/19/2025 1:39 PM NUB CARD TENDER Oxygen Saturation 97% 02/19/2025 1:00 PM NUB CARD TENDER Inhaled Oxygen Concentration - - Weight 70.3 kg (155 lb) 03/19/2025 1:39 PM NUB CARD TENDER Height 177.8 cm (5' 10) 03/19/2025 1:39 PM NUB CARD TENDER Body Mass Index 22.24 03/19/2025 1:39 PM NUB CARD TENDER Plan of Treatment Health Maintenance Due Date Last Done Comments Hepatitis C Screening 1945 Hepatitis B Screening 1963 Zoster Vaccine (1 of 2) 1964 Covid-19 Vaccine (2024-2 6 season) 2024 01/04/2024, 02/28/2023, 11/16/2022, Additional history exists Depression Screening 08/15/2025 08/15/2024, 08/09/2023, 07/27/2022, Additional history exists Well Visit 65+ 08/15/2025 08/15/2024, 0504/2023, 07/27/2022, Additional history exists Fall Risk Assessment 11/08/2025 11/08/2024, 08/15/2024, 08/09/2023, Additional history exists DTaP/Tdap/Td Vaccine (2 - Td or Tdap) 03/01/2032 03/01/2022 Abdominal Aortic Aneurysm (A AA) Screen Completed 11/04/2013, 09/03/2013, 06/20/2013 Pneumococcal vaccine 65+ Completed 02/15/2019, 01/08 Prostate Cancer Screening-PSA Discontinued , 01/17/2023, 07/08/2021, Additional history exists Influenza Vaccine Completed 02/19/2025, , 01/04/2024, Additional history exists Procedures Procedure Name Priority Date/Time Associated Diagnosis Comments EGFR Routine 02/12/2025 9:11 AM NUB CARD TENDER Medicare annual wellness visit, subsequent Mixed hyperlipidemia DIFFERENTIAL AUTO Routine 02/12/2025 9:1 1 AM NUB CARD TENDER Medicare annual wellness visit, subsequent Chronic obstructive pulmonary disease, unspecified COPD type (HCC) LIPID PANEL Routine 02/12/2025 9:11 AM NUB CARD TENDER Medicare annual wellness visit, subsequent Mixed hyperlipidemia COMPREHENSIVE METABOLIC PANEL Routine 02/12/2025 9:11 AM NUB CARD TENDER Medicare annual wellness visit, subsequent Mixed hyperlipidemia CBC WITH AUTO DIFFERENTIAL Routine 02/12/2025 9:11 AM NUB CARD TENDER Medicare annual wellness visit, subsequent Chronic obstructive pulmonary disease, unspecified COPD type (HCC) RAD ONC ARIA SESSION SUMMARY 02/04/2025 10:27 AM CDT RAD ONC ARIA SESSION SUMMARY 02/03/2025 11:43 AM CDT RAD ONC ARIA SESSION SUMMARY 01/31/2025 10:08 AM CDT RAD ONC ARIA SESSION SUMMARY 01/30/2025 12:29 PM CDT RAD ONC ARIA SESSION SUMMARY 01/29/2025 2:02 PM CDT RAD ONC ARIA SESSION SUMMARY 01/28/2025 8:56 AM CDT RAD ONC ARIA SESSION SUMMARY 01/27/2025 8:52 AM CDT RAD ONC ARIA SESSION SUMMARY 01/24/2025 8:53 AM CDT RAD ONC ARIA SESSION SUMMARY 01/23/2025 11:42 AM CDT RAD ONC ARIA SESSION SUMMARY 01/22/2025 8:50 AM CDT RAD ONC ARIA SESSION SUMMARY 01/21/2025 8:57 AM CDT RAD ONC ARIA SESSION SUMMARY 01/20/2025 3:52 PM CDT PET/CT FDG SKULL TO THIGH Schedule Routine, Read Routine (OP Routine) 01/03/2025 2:30 PM CDT Pulmonary nodule POCT GLUCOSE DEVICE Routine 01/03/2025 12:58 PM CDT PSA SCREEN Routine 08/09/2024 9:04 AM CDT Prostate cancer screening CT ABDOMEN PELVIS WO CONTRAST Routine 11/04/2013 8:00 AM CDT from Last 3 Months or Most Recently Relevant to Health Maintenance Results * eGFR (02/12/2025 9:11 AM NUB CARD TENDER) eGFR 87 >=60 mL/min/1. 73 m2 Comment: Interpretive Data Reference Interval Normal >/= 90 mL/min/1.73m2 Mildly decreased* 60 - 89 mL/min/1.73m2 Mildly to moderately decreased 45 - 59 mL/min/1.73m2 Moderately to severely decreased 30 - 44 mL/min/1.73m2 Severely decreased 15 - 29 mL/min/1.73m2 Kidney Failure < 15 mL/min/1.73m2 *Relative to young adult level Estimated glomerular filtration rate is determined by the 2020 CKD-EPI equation recommended by the National Kidney Foundation (A Unifying Approach to GFR Estimation: Recommendations of the NKF-ASK Task Force on Reassessing the Inclusion of Race in Diagnosing Kidney Disease, JASN 202). The CKD-EPI equation should not be used for patients with unstable renal function and has not been validated in children and those over 70. Current interpretive data was last reviewed 2021. Blood 02/12/2025 9:11 AM NUB CARD TENDER 02/12/2025 10:41 AM NUB CARD TENDER us Abdoul Dunn MD LAB BLOOD ORDERABLES Final Re sult [facility] [id number] [facility] Department of Laboratories [place], [place] [id number] * Differential, auto (02/12/2025 9:11 AM NUB CARD TENDER) Neutrophil abs 2.04 1.50 - 6.50 K/cumm Imm gran abs 0.00 0.00 - 0.10 K/cumm [facility] Lymphocyte abs 1.00 0.80 - 3.30 K/cumm [facility] Monocyte abs 0.37 0.20 - 0.80 K/cumm [facility] Eosinophil abs 0.12 0.00 - 0.50 K/cumm [facility] Basophil abs 0.02 0.00 - 0.10 K/cumm [facility] Neutrophil pct 57.4 % [facility] Comment: Interpretive Data Percent cell count reference ranges are not reported, since discordance with absolute values may lead to misinterpretation of CBC data. Current Interpretive Data was last revised on 2017. Imm gran pct 0.0 % [facility] Comment: Interpretive Data Percent cell count reference ranges are not reported, since discordance with absolute values may lead to misinterpretation of CBC data. Current Interpretive Data was last revised on 2017. Lymphocyte pct 28.2 % [facility] Comment: Interpretive Data Percent cell count reference ranges are not reported, since discordance with absolute values may lead to misinterpretation of CBC data. Current Interpretive Data was last revised on 2017. Monocyte pct 10.4 % [facility] Comment: Interpretive Data Percent cell count reference ranges are not reported, since discordance with absolute values may lead to misinterpretation of CBC data. Current Interpretive Data was last revised on 2017. Eosinophil pct 3.4 % [facility] Comment: Interpretive Data Percent cell count reference ranges are not reported, since discordance with absolute values may lead to misinterpretation of CBC data. Current Interpretive Data was last revised on 2017. Basophil pct 0.6 % [facility] Comment: Interpretive Data Percent cell count reference ranges are not reported, since discordance with absolute values may lead to misinterpretation of CBC data. Current Interpretive Data was last revised on 2017. Blood 02/12/2025 9:11 AM NUB CARD TENDER 02/12/2025 10:43 AM NUB CARD TENDER us Abdoul Dunn MD LAB BLOOD ORDERABLES Final Re sult [facility] [address] [facility] Department of Laboratories [place], [place] [id number] * (ABNORMAL) CBC with auto differential (02/12/2025 9:11 AM NUB CARD TENDER) WBC 3.55(L) 3.80 - 9.90 K/cumm Hgb 13.1 13.0 - 17.5 g/dL [facility] Hct 43.1 38.9 - 50.3 % [facility] Plt 194 150 - 400 K/cumm [facility] MPV 9.6 9.1 - 12.3 fL [facility] RBC 4.41 4.30 - 5.80 M/cumm [facility] MCV 97.7(H) 81.3 - 96.4 fL [facility] MCH 29.7 27.1 - 33.3 pg [facility] MCHC 30.4(L) 32.3 - 35.7 g/dL [facility] RDW CV 12.4 11.1 - 14.9 % [facility] RDW SD 44.8 35.7 - 48.1 fL [facility] NRBC abs 0.00 0.00 - 0.01 K/cumm [facility] Blood 02/12/2025 9:11 AM NUB CARD TENDER 02/12/2025 10:43 AM NUB CARD TENDER us Abdoul Dunn MD LAB BLOOD ORDERABLES Final Re sult [facility] [id number] [facility] [place] [address] * Lipid panel (02/12/2025 9:11 AM NUB CARD TENDER) Cholesterol 156 30 - 199 mg/dL Comment: Interpretive Data Ages < or = 19 years Acceptable: <170 mg/dL Borderline high: 170-199 mg/dL High: >or= 200 mg/dL Ages > or = 20 years Desirable: <200 mg/dL Borderline high: 200-239 mg/dL High: >or= 240 mg/dL Literature References: 1. Expert Panel on Integrated Guidelines for Cardiovascular Health and Risk Reduction in Children and Adolescents. Pediatrics 2011;128:S213 2. NCEP Expert Panel. Circulation 2004;110:227 Current Interpretive Data was last revised on 2017. Triglycerides 61 <=149 mg/dL [facility] Comment: Interpretive Data Ages < or = 9 years Acceptable: <75 mg/dL Borderline high: 75-99 mg/dL High: >or= 100 mg/dL Ages 10 to 20 years Acceptable: <90 mg/dL Borderline high: 90-129 mg/dL High: >or= 130 mg/dL Ages > or = 20 years Desirable: <150 mg/dL Borderline high: 150-199 mg/dL High: 200-499 mg/dL Very high: >or= 499 mg/dL Literature References: 1. Expert Panel on Integrated Guidelines for Cardiovascular Health and Risk Reduction in Children and Adolescents. Pediatrics 2011;128:S213 2. NCEP Expert Panel. Circulation 2004;110:227 Current Interpretive Data was last revised on 2017. HDL 75 >=40 mg/dL KATHIE Comment: Interpretive Data Ages < or = 19 years Acceptable: >45 mg/dL Borderline low: 40-45 mg/dL Low: <40 mg/dL Ages > or = 20 years Desirable: >or= 60 mg/dL Low: <40 mg/dL Literature References: 1. Expert Panel on Integrated Guidelines for Cardiovascular Health and Risk Reduction in Children and Adolescents. Pediatrics 2011;128:S213 2. NCEP Expert Panel. Circulation 2004;110:227 Current Interpretive Data was last revised on 2017. LDL, calculated 69 <=129 mg/dL KATHIE WARREN Comment: Interpretive Data Ages < or = 19 years Acceptable: <110 mg/dL Borderline high: 110-129 mg/dL High: >or= 130 mg/dL Ages > or = 20 years Optimal: <100 mg/dL Near optimal: 100-129 mg/dL Borderline high: 130-159 mg/dL High: >160 mg/dL Calculated using the Liam LDL-C estimating equation. This equation was implemented on 2023. Prior to this date LDL-C was estimated using the Friedewald equation. Literature References: 1. Expert Panel on Integrated Guidelines for Cardiovascular Health and Risk Reduction in Children and Adolescents. Pediatrics 2011;128:S213 2. NCEP Expert Panel. Circulation 2004;110:227 3. Liam Casarez et al. TONY Cardiol. 2020 August 08;5(5):540-548. doi: 10.1001/jamacardio.2020.0013 Current Interpretive Data was last revised on 2023. Non-HDL Cholesterol 81 mg/dL KATHIE Comment: Interpretive Data Ages < or = 19 years Acceptable: <120 mg/dL Borderline high: 120-144 mg/dL High: >145 mg/dL Ages > or = 20 years When triglycerides are >200 mg/dL, Non-HDL cholesterol is a secondary target of therapy with treatment goals that are 30 mg/dL greater than the LDL cholesterol target. Literature References: 1. Expert Panel on Integrated Guidelines for Cardiovascular Health and Risk Reduction in Children and Adolescents. Pediatrics 2011;128:S213 2. NCEP Expert Panel. Circulation 2004;110:227 Current Interpretive Data was last revised on 2017. Chol/HDL ratio 2 KATHIE WARREN Blood 02/12/2025 9:11 AM NUB CARD TENDER 02/12/2025 10:41 AM NUB CARD TENDER us Abdoul Dunn MD LAB BLOOD ORDERABLES Final Re sult KATHIE [address] [facility] Department of Laboratories [place], [place] [id number] * (ABNORMAL) Comprehensive metabolic panel (02/12/2025 9:11 AM NUB CARD TENDER) Sodium 143 135 - 145 mmol/L Potassium, pl 4.8 3.3 - 4.9 mmol/L [facility] Chloride 101 97 - 110 mmol/L [facility] CO2 36(H) 22 - 32 mmol/L [facility] Anion gap 6 2 - 15 mmol/L [facility] BUN 13 6 - 25 mg/dL [facility] Creatinine 0.90 0.80 - 1.30 mg/dL [facility] Glucose 102 70 - 199 mg/dL [facility] Comment: Interpretive Data Fasting glucose >/= 126 mg/dl is diagnostic for diabetes. Fasting is defined as no caloric intake for at least 8 hours. Fasting glucose between 100 mg/dl to 125 mg/dl is diagnostic of prediabetes. In a patient with classic symptoms of hyperglycemia or hyperglycemic crisis, a random glucose >/= 200 mg/dl is diagnostic for diabetes. In the absence of unequivocal hyperglycemia, results should be confirmed by repeat testing. The classification and Diagnosis of Diabetes Diabetes Care 2021; 46: S19-S40. Current interpretive data was last revised 2022. Calcium 9.7 8.5 - 10.3 mg/dL [facility] Bilirubin, total 0.3 0.1 - 1.2 mg/dL [facility] Protein, pl 7.3 6.5 - 8.5 g/dL [facility] Albumin 3.8 3.5 - 5.0 g/dL [facility] Alk phos 82 40 - 130 Units/L [facility] ALT 9 7 - 55 Units/L [facility] AST 19 10 - 50 Units/L [facility] Blood 02/12/2025 9:11 AM NUB CARD TENDER 02/12/2025 10:41 AM NUB CARD TENDER us Abdoul Dunn MD LAB BLOOD ORDERABLES Final Re sult KATHIE [address] [facility] [place] [address] * RAD ONC ARIA SESSION SUMMARY (02/04/2025 10:27 AM CDT) Pathologist [facility] Course Name [id number] ARIA Course Plan Date 01/06/2025 12:23 PM ARIA Elapsed Days 15 ARIA Treatment Start Date 01/20/2025 ARIA Treatment Site RUL 6000 ARIA Dose Given To Date (cGy) 6,000 ARIA Session Dosage Given (cGy) 500 ARIA Plan ID RUL LUNG ARIA Fractions Treated 12 ARIA Prescribed Dose Per Fraction (cGy) 500 ARIA Prescribed Total Dose (cGy) 6,000 ARIA 02/04/2025 10:2 7 AM CDT us Not In File Miscellaneous RADIATION ONCOLOGY ORD ERABLES Final Result ARIA * RAD ONC ARIA SESSION SUMMARY (02/03/2025 11:43 AM CDT) Course Name [id number] ARIA Course Plan Date 01/06/2025 12:23 PM ARIA Elapsed Days 14 ARIA Treatment Start Date 01/20/2025 ARIA Treatment Site RUL 6000 ARIA Dose Given To Date (cGy) 5,500 ARIA Session Dosage Given (cGy) 500 ARIA Plan ID RUL LUNG ARIA Fractions Treated 11 ARIA Prescribed Dose Per Fraction (cGy) 500 ARIA Prescribed Total Dose (cGy) 6,000 ARIA 02/03/2025 11:4 3 AM CDT us Not In File Miscellaneous RADIATION ONCOLOGY ORD ERABLES Final Result ARIA * RAD ONC ARIA SESSION SUMMARY (01/31/2025 10:08 AM CDT) Course Name [id number] ARIA Course Plan Date 01/06/2025 12:23 PM ARIA Elapsed Days 11 ARIA Treatment Start Date 01/20/2025 ARIA Treatment Site RUL 6000 ARIA Dose Given To Date (cGy) 5,000 ARIA Session Dosage Given (cGy) 500 ARIA Plan ID RUL LUNG ARIA Fractions Treated 10 ARIA Prescribed Dose Per Fraction (cGy) 500 ARIA Prescribed Total Dose (cGy) 6,000 ARIA 01/31/2025 10:0 8 AM CDT us Not In File Miscellaneous RADIATION ONCOLOGY ORD ERABLES Final Result ARIA * RAD ONC ARIA SESSION SUMMARY (01/30/2025 12:29 PM CDT) Course Name [id number] ARIA Course Plan Date 01/06/2025 12:23 PM ARIA Elapsed Days 10 ARIA Treatment Start Date 01/20/2025 ARIA Treatment Site RUL 6000 ARIA Dose Given To Date (cGy) 4,500 ARIA Session Dosage Given (cGy) 500 ARIA Plan ID RUL LUNG ARIA Fractions Treated 9 ARIA Prescribed Dose Per Fraction (cGy) 500 ARIA Prescribed Total Dose (cGy) 6,000 ARIA 01/30/2025 12:2 9 PM CDT us Not In File Miscellaneous RADIATION ONCOLOGY ORD ERABLES Final Result ARIA * RAD ONC ARIA SESSION SUMMARY (01/29/2025 2:02 PM CDT) Course Name [id number] ARIA Course Plan Date 01/06/2025 12:23 PM ARIA Elapsed Days 9 ARIA Treatment Start Date 01/20/2025 ARIA Treatment Site RUL 6000 ARIA Dose Given To Date (cGy) 4,000 ARIA Session Dosage Given (cGy) 500 ARIA Plan ID RUL LUNG ARIA Fractions Treated 8 ARIA Prescribed Dose Per Fraction (cGy) 500 ARIA Prescribed Total Dose (cGy) 6,000 ARIA 01/29/2025 2:02 PM CDT us Not In File Miscellaneous RADIATION ONCOLOGY ORD ERABLES Final Result ARIA * RAD ONC ARIA SESSION SUMMARY (01/28/2025 8:56 AM CDT) Course Name [id number] ARIA Course Plan Date 01/06/2025 12:23 PM ARIA Elapsed Days 8 ARIA Treatment Start Date 01/20/2025 ARIA Treatment Site RUL 6000 ARIA Dose Given To Date (cGy) 3,500 ARIA Session Dosage Given (cGy) 500 ARIA Plan ID RUL LUNG ARIA Fractions Treated 7 ARIA Prescribed Dose Per Fraction (cGy) 500 ARIA Prescribed Total Dose (cGy) 6,000 ARIA 01/28/2025 8:56 AM CDT us Not In File Miscellaneous RADIATION ONCOLOGY ORD ERABLES Final Result ARIA * RAD ONC ARIA SESSION SUMMARY (01/27/2025 8:52 AM CDT) Course Name [id number] ARIA Course Plan Date 01/06/2025 12:23 PM ARIA Elapsed Days 7 ARIA Treatment Start Date 01/20/2025 ARIA Treatment Site RUL 6000 ARIA Dose Given To Date (cGy) 3,000 ARIA Session Dosage Given (cGy) 500 ARIA Plan ID RUL LUNG ARIA Fractions Treated 6 ARIA Prescribed Dose Per Fraction (cGy) 500 ARIA Prescribed Total Dose (cGy) 6,000 ARIA 01/27/2025 8:52 AM CDT us Not In File Miscellaneous RADIATION ONCOLOGY ORD ERABLES Final Result ARIA * RAD ONC ARIA SESSION SUMMARY (01/24/2025 8:53 AM CDT) Course Name [id number] ARIA Course Plan Date 01/06/2025 12:23 PM ARIA Elapsed Days 4 ARIA Treatment Start Date 01/20/2025 ARIA Treatment Site RUL 6000 ARIA Dose Given To Date (cGy) 2,500 ARIA Session Dosage Given (cGy) 500 ARIA Plan ID RUL LUNG ARIA Fractions Treated 5 ARIA Prescribed Dose Per Fraction (cGy) 500 ARIA Prescribed Total Dose (cGy) 6,000 ARIA 01/24/2025 8:53 AM CDT us Not In File Miscellaneous RADIATION ONCOLOGY ORD ERABLES Final Result Performing Organization Address City/[facility] Co de Phone Number ARIA * RAD ONC ARIA SESSION SUMMARY (01/23/2025 11:42 AM CDT) Course Name [id number] ARIA Course Plan Date 01/06/2025 12:23 PM ARIA Elapsed Days 3 ARIA Treatment Start Date 01/20/2025 ARIA Treatment Site RUL 6000 ARIA Dose Given To Date (cGy) 2,000 ARIA Session Dosage Given (cGy) 500 ARIA Plan ID RUL LUNG ARIA Fractions Treated 4 ARIA Prescribed Dose Per Fraction (cGy) 500 ARIA Prescribed Total Dose (cGy) 6,000 ARIA 01/23/2025 11:4 2 AM CDT us Not In File Miscellaneous RADIATION ONCOLOGY ORD ERABLES Final Result Performing Organization Address [facility] Co de Phone Number ARIA * RAD ONC ARIA SESSION SUMMARY (01/22/2025 8:50 AM CDT) Course Name [id number] ARIA Course Plan Date 01/06/2025 12:23 PM ARIA Elapsed Days 2 ARIA Treatment Start Date 01/20/2025 ARIA Treatment Site RUL 6000 ARIA Dose Given To Date (cGy) 1,500 ARIA Session Dosage Given (cGy) 500 ARIA Plan ID RUL LUNG ARIA Fractions Treated 3 ARIA Prescribed Dose Per Fraction (cGy) 500 ARIA Prescribed Total Dose (cGy) 6,000 ARIA 01/22/2025 8:50 AM CDT us Not In File Miscellaneous RADIATION ONCOLOGY ORD ERABLES Final Result ARIA * RAD ONC ARIA SESSION SUMMARY (01/21/2025 8:57 AM CDT) Course Name [id number] ARIA Course Plan Date 01/06/2025 12:23 PM ARIA Elapsed Days 1 ARIA Treatment Start Date 01/20/2025 ARIA Treatment Site RUL 6000 ARIA Dose Given To Date (cGy) 1,000 ARIA Session Dosage Given (cGy) 500 ARIA Plan ID RUL LUNG ARIA Fractions Treated 2 ARIA Prescribed Dose Per Fraction (cGy) 500 ARIA Prescribed Total Dose (cGy) 6,000 ARIA 01/21/2025 8:57 AM CDT us Not In File Miscellaneous RADIATION ONCOLOGY ORD ERABLES Final Result Performing Organization Address [facility]/ZIP Co de Phone Number LITZY Perera RAD ONC ARIA SESSION SUMMARY (01/20/2025 3:52 PM CDT) Course Name [id number] ARIA Course Plan Date 01/06/2025 12:23 PM ARIA Elapsed Days 0 ARIA Treatment Start Date 01/20/2025 ARIA Treatment Site RUL 6000 ARIA Dose Given To Date (cGy) 500 ARIA Session Dosage Given (cGy) 500 ARIA Plan ID RUL LUNG ARIA Fractions Treated 1 ARIA Prescribed Dose Per Fraction (cGy) 500 ARIA Prescribed Total Dose (cGy) 6,000 ARIA 01/20/2025 3:52 PM CDT us Not In File Miscellaneous RADIATION ONCOLOGY ORD ERABLES Final Result LITZY * PET/CT FDG Skull to Thigh (01/03/2025 2:30 PM CDT) Anatomical Region Laterality Modality N/A Positron Emissio n Tomography (PET) 01/03/2025 2:45 PM CDT Narrative 01/03/2025 3:06 PM CDT EXAM DESCRIPTION: PET/CT FDG SKULL TO THIGH REASON FOR STUDY: Pulmonary nodule, PET-CT for diagnosis and initial treatment strategy. RADIOPHARMACEUTICAL: 9.6 mCi F-18 Fluorodeoxyglucose (FDG) via a right antecubital IV site. TECHNIQUE: The patient's fasting blood glucose level, measured by glucometer before injection of FDG, was 89 mg/dL. After intravenous administration of FDG, noncontrast CT images were obtained for attenuation correction and for fusion with emission PET images to allow for anatomical localization of PET findings. Emission PET images were then obtained. The area imaged spanned the region from the skull base to the thighs. The uptake time was approximately 63 minutes. SUV max was normalized to body weight. COMPARISON: PET-CT 05/14/2024. Correlation is also made with a chest CT 11/08/2024. FINDINGS: For reference, a region of interest of the ascending thoracic aorta has a maximal SUV of 1.8 . For reference, a region of interest of the right hepatic lobe of the liver has a maximal SUV of 2.4. There is increased skeletal muscle and left ventricular cardiac activity, this is suspected to be related to an insufficient fast. This does decrease the quality and sensitivity of the examination. Head: Normal FDG uptake is seen in the included portion of the brain. Neck: Physiologic uptake is present in the lymphoid structures and salivary glands. No hypermetabolic lymphadenopathy is identified. Chest: Emphysema is noted. The medial right apical cavitary nodule has increased compared to the prior PET-CT, this is now 3.5 x 2.3 cm with a maximal SUV of 22.0, previously this was approximately 0.6 cm and had a maximal SUV 8.1. Slightly more inferior in the anterior right upper lobe there is a cavitary nodule 1.7 x 1.5 cm, the maximal SUV is 2.9, previously this was 1.7 x 1.4 cm with maximal SUV 5.4 as remeasured. Some of the subpleural ground-glass opacities with activity especially in the left lung have resolved. There is a posterior left upper lobe nodule, this is 1.6 x 1.4 cm with a maximal SUV is 1.6, previously this was 1.6 x 1.4 cm and had a maximal SUV of 2.0 as remeasured. Areas of mild bronchiectasis in the lower lobes and in the lingula. There is mild activity mediastinal hilar stations, right hilum maximal SUV 3.2, previously 4.3. Granulomatous calcification subcarinal station. Activity left hilum maximal SUV 2.7, previously 4.2. Activity AP window maximal SUV 3.1, previously 5.0. Heart size is normal. No pleural or pericardial effusion. Abdomen and Pelvis: Liver and spleen demonstrate normal activity without focal abnormal FDG uptake. Gallbladder unremarkable. Pancreas and both adrenal glands demonstrate normal FDG activity. Normal excretion of FDG from the kidneys with expected accumulation of radiotracer in the urinary bladder. Small calcification mid left kidney. There are no hypermetabolic lymph nodes in the abdomen and pelvis. Physiologic bowel activity is present. Mild enlargement of the prostate. Bones: Bone windows demonstrate no hypermetabolic acute or aggressive osseous lesions. IMPRESSION: 1. Increased size and activity of the medial right apical cavitary nodule suspicious for malignancy possibly bronchogenic carcinoma. 2. Decreased activity of right upper and posterior left upper lobe nodules which are similar in size. 3. Slight decreased activity of lymph nodes in mediastinum or saran. 4. No evidence of FDG avid extrathoracic metastasis. THIS IS AN ELECTRONICALLY VERIFIED FINAL REPORT 01/03/2025 3:06 PM - Electronically signed by Gennaro Nevarez M.D. CH: MONICA Report ID: [id number] Reading Location: [id number] Procedure Note Gennaro Nevarez MD - 01/03/2025 EXAM DESCRIPTION: PET/CT FDG SKULL TO THIGH REASON FOR STUDY: Pulmonary nodule, PET-CT for diagnosis and initialtreatment strategy. RADIOPHARMACEUTICAL: 9.6 mCi F-18 Fluorodeoxyglucose (FDG) via a right antecubital IV site. TECHNIQUE: The patient's fasting blood glucose level, measured byglucometer before injection of FDG, was 89 mg/dL. After intravenous administrationof FDG, noncontrast CT images were obtained for attenuation correction andfor fusion with emission PET images to allow for anatomical localization ofPET findings. Emission PET images were then obtained. The area imaged spannedthe region from the skull base to the thighs. The uptake time wasapproximately 63 minutes. SUV max was normalized to body weight. COMPARISON: PET-CT 05/14/2024. Correlation is also made with a chest CT 11/08/2024. FINDINGS: For reference, a region of interest of the ascending thoracicaorta has a maximal SUV of 1.8 . For reference, a region of interest of theright hepatic lobe of the liver has a maximal SUV of 2.4. There is increased skeletal muscle and left ventricular cardiac activity,this is suspected to be related to an insufficient fast. This does decreasethe quality and sensitivity of the examination. Head: Normal FDG uptake is seen in the included portion of the brain. Neck: Physiologic uptake is present in the lymphoid structures andsalivary glands. No hypermetabolic lymphadenopathy is identified. Chest: Emphysema is noted. The medial right apical cavitary nodule has increased compared to the prior PET-CT, this is now 3.5 x 2.3 cm with a maximal SUV of 22.0, previously this was approximately 0.6 cm and had a maximal SUV 8.1. Slightly more inferior in the anterior right upper lobe there is a cavitary nodule 1.7 x 1.5 cm, the maximal SUV is 2.9,previously this was 1.7 x 1.4 cm with maximal SUV 5.4 as remeasured. Some of the subpleural ground-glass opacities with activity especially in the leftlung have resolved. There is a posterior left upper lobe nodule, this is 1.6 x1.4 cm with a maximal SUV is 1.6, previously this was 1.6 x 1.4 cm and had a maximal SUV of 2.0 as remeasured. Areas of mild bronchiectasis in thelower lobes and in the lingula. There is mild activity mediastinal hilarstations, right hilum maximal SUV 3.2, previously 4.3. Granulomatous calcification subcarinal station. Activity left hilum maximal SUV 2.7, previously 4.2. Activity AP window maximal SUV 3.1, previously 5.0. Heart size is normal.No pleural or pericardial effusion. Abdomen and Pelvis: Liver and spleen demonstrate normal activity withoutfocal abnormal FDG uptake. Gallbladder unremarkable. Pancreas and both adrenal glands demonstrate normal FDG activity. Normal excretion of FDG from the kidneys with expected accumulation of radiotracer in the urinary bladder. Small calcification mid left kidney. There are no hypermetabolic lymphnodes in the abdomen and pelvis. Physiologic bowel activity is present. Mild enlargement of the prostate. Bones: Bone windows demonstrate no hypermetabolic acute or aggressiveosseous lesions. IMPRESSION: 1. Increased size and activity of the medial right apical cavitarynodule suspicious for malignancy possibly bronchogenic carcinoma. 2. Decreased activity of right upper and posterior left upper lobenodules which are similar in size. 3. Slight decreased activity of lymph nodes in mediastinum or saran. 4. No evidence of FDG avid extrathoracic metastasis. THIS IS AN ELECTRONICALLY VERIFIED FINAL REPORT 01/03/2025 3:06 PM - Electronically signed by Gennaro Nevarez M.D. CH: Report ID: [id number] Reading Location: [id number] us Tian Davis MD IMG PET PROCEDURES Final Resul t * POCT glucose (01/03/2025 12:58 PM CDT) Pathologist [facility] Glucose, POC 89 70 - 199 mg/dL Comment:Testing performed by : [facility], [address] [place] [address]., [id number] Blood 01/03/2025 12:5 8 PM CDT 01/03/2025 12:58 PM CDT us Abdoul Dunn MD LAB POCT ORDERABLES - DEVICE Final Result [facility] [address] [facility] [place] [address] * PSA screen (08/09/2024 9:04 AM CDT) Pathologist [facility] PSA-Total 1.48 <=6.20 ng/mL Comment: Interpretive Data AGE SEX REFERENCE INTERVAL 0 minutes-150 years Female None 0 minutes-49 years Male None 50-59 years Male 0-3.90 60-69 years Male 0-5.40 70-79 years Male 0-6.20 80-150 years Male 0-6.20 The Garrett PSA Total assay procedure was used. Results from different manufacturers or methods may not be comparable. Serial testing should be performed using the same method. Current interpretive data last revised 21. Blood 08/09/2024 9:04 AM CDT 08/09/2024 8:23 PM CDT us Abdoul Dunn MD LAB BLOOD ORDERABLES Final Re sult KATHIE [address] [address] Department [place] [address] * CT Abdomen Pelvis WO Contrast (11/04/2013 8:00 AM CDT) Anatomical Region Laterality Modality Body N/A Computed Tomogra phy 11/04/2013 8:00 AM CDT Impressions 11/04/2013 9:50 AM CDT 1. 0.5 cm distal left ureteral calculus not significantly changed. No significant hydronephrosis or hydroureter. 2. No new acute inflammatory abnormality in the abdomen or pelvis. 3. Uncomplicated colonic diverticulosis. 4. Additional unchanged chronic findings as above. 5. See separately dictated CT chest. THIS IS AN ELECTRONICALLY VERIFIED REPORT 11/04/2013 9:47 AM: Gennaro Nevarez M.D. Gennaro Nevarez M.D. CH:betzy 08:26 AM 08:31 AM [facility] [EOD] Narrative 11/04/2013 9:50 AM CDT EXAMINATION: CT abdomen and pelvis without contrast HISTORY: Kidney stone. Lung nodule. TECHNIQUE: Noncontrast CT images were obtained through the abdomen and pelvis. COMPARISON: 09/03/2013. FINDINGS: See separately dictated CT the chest. Abdomen: For noncontrast technique the liver, spleen, pancreas and both adrenal glands are unremarkable. Sequela of old granulomatous disease in the spleen. Gallbladder is decompressed with no calcified stones. No renal calculi are identified. No right ureteral calculi are seen. A distal left ureteral calculus is again seen, just proximal to the UVJ. This measures 0.5 cm (series 6 image 121). No hydronephrosis or hydroureter is identified. Severe diverticulosis of the sigmoid colon and scattered additional diverticula are unchanged. No evidence of acute diverticulitis. A normal appendix is noted on series 6 image 98. No evidence of bowel obstruction. Atherosclerotic calcification of the abdominal aorta is again noted. Partially imaged bilateral hydroceles are again noted. Pelvis: Urinary bladder is unremarkable. No free fluid in the pelvis. No pathologic adenopathy in the pelvis. Bone windows demonstrate tiny sclerotic focus in the left ischial tuberosity. No acute aggressive osseous abnormalities are seen. Procedure Note Provider, MD Candice - 08/26/2020 EXAMINATION: CT abdomen and pelvis without contrast HISTORY: Kidney stone. Lung nodule. TECHNIQUE: Noncontrast CT images were obtained through the abdomen andpelvis. COMPARISON: 09/03/2013. FINDINGS: See separately dictated CT the chest. Abdomen: For noncontrast technique the liver, spleen, pancreas and both adrenal glands are unremarkable. Sequela of old granulomatous disease inthe spleen. Gallbladder is decompressed with no calcified stones. No renal calculi are identified. No right ureteral calculi are seen. A distal left ureteral calculus is again seen, just proximal to the UVJ.This measures 0.5 cm (series 6 image 121). No hydronephrosis or hydroureter is identified. Severe diverticulosis of the sigmoid colon and scattered additional diverticula are unchanged. No evidence of acute diverticulitis. A normal appendix is noted on series 6 image 98. No evidence of bowel obstruction. Atherosclerotic calcification of the abdominal aorta is again noted. Partially imaged bilateral hydroceles are again noted. Pelvis: Urinary bladder is unremarkable. No free fluid in the pelvis.No pathologic adenopathy in the pelvis. Bone windows demonstrate tiny sclerotic focus in the left ischialtuberosity. No acute aggressive osseous abnormalities are seen. IMPRESSION: 1. 0.5 cm distal left ureteral calculus not significantly changed. No significant hydronephrosis or hydroureter. 2. No new acute inflammatory abnormality in the abdomen or pelvis. 3. Uncomplicated colonic diverticulosis. 4. Additional unchanged chronic findings as above. 5. See separately dictated CT chest. THIS IS AN ELECTRONICALLY VERIFIED REPORT 11/04/2013 9:47 AM: Gennaro Nevarez M.D. Gennaro Nevarez M.D. CH:betzy 08:26 AM 08:31 AM BM [EOD] Luther Marlow MD IMG CT PROCEDURES Fi nal Result from Last 3 Months or Most Recently Relevant to Health Maintenance Insurance [employer] MEDICARE ADVANTAGE [facility] Address: [place] [address] [employer] MED[employer] ADVANTAGE [facility] Address: [address] [address] [place] [address] Advance Directives For more information, please contact: [phone] Documents on File Type Date Recorded Patient Rental Coordinator Alexa david ADVANCE DIRECTIVE 07/02/2020 ADVANCE DIRECTIVE 09/18/2013 12:00 AM CEZAR DIAZ * Full Code (Latest Code Status on File) Date Activated Date Inactivated Comments 05/26/2024 2:10 AM 05/27/2024 7:24 PM Care Teams White Lead Grinder Relationship Specialty Start Date End Date Abdoul Dunn MD [address] [facility] [address] [place] [address] PCP - General Family Medicine 01/06/25 Shreya Ramirez MD [address] [place] [address] [address] [place] [address] Consulting Physician Pulmonary Disease 11/04/24 Tian Davis MD [address] [facility] [address] [place] [address] Radiation Oncologist Radiation Oncology 12/31/24
--- OUTSIDE RECORDS SUMMARY | 2025-03-19 21:15 | XMS_ITS | Clinical Summary ---
Author Organization [facility] Address [address] [place] [address] Care Team Providers Care Annealer Helper Name Role Phone Abdoul Dunn MD Primary Care Provider [phone] Social History Tobacco Use Types Packs/Day Years Used Date Smoking Tobacco: Never Assessed Sex and Gender Information Value Date Recorded Sex Assigned at Not on file Legal Sex Male 7:20 PM CDT Gender Identity Not on file Sexual Orientation Not on file Plan of Treatment Health Maintenance Due Date Last Done Comments Hepatitis C 1963 DTaP, Tdap and Td Vaccines ( 1 - Tdap) 1965 Pneumococcal Vaccine: 50+ Ye ars (1 of 1 - PCV) 1996 Zoster Vaccines (1 of 2) 1996 RSV Immunization or 60+ Years (1 - 1-dose 75+ series) 2021 COVID-19 Vaccine ( - 2024-2 6 season) 2024 Influenza Adult (#1) 2025 Hepatitis A Vaccines Aged Out No long er eligible based on patient's age to complete this topic Meningococcal B Vaccine Aged Out No l onger eligible based on patient's age to complete this topic Meningococcal Vaccine Aged Out No gyu raimundo eligible based on patient's age to complete this topic RSV Immunizations Under 20 Months Aged Out No longer eligible based on patient's age to complete this topic Care Teams Annealer Helper Relationship Specialty Start Date End Date Abdoul Dunn MD PCP - General 09/17/11
--- OUTSIDE RECORDS SUMMARY | 2025-03-19 21:15 | XMS_ITS | Encounter Summary ---
Author Organization [facility] Facility Care Team Providers Care Backend Developer Name Role Phone Abdoul Dunn MD Primary Care Provider [phone] Kerry Vyas LPN Unavailable [phone] Abdoul Dunn MD Primary Care Provider [phone] Shreya Ramirez MD Unavailable [phone] Tian Davis MD Unavailable [phone] Abdoul Dunn MD Primary Care Provider [phone] Encounter Details Date Type Department Care Team (Latest Contact Info) Description 10/16/2015 Orders Only [facility] CLINCONV ProviderCandice MD [address] [place] [address] Social History Tobacco Use Types Packs/Day Years Used Date Smoking Tobacco: Never Assessed Sex and Gender Information Value Date Recorded Sex Assigned at Not on file Legal Sex Male 8:24 AM CDT Gender Identity Not on file Sexual Orientation Not on file documented as of this encounter Plan of Treatment Not on file documented as of this encounter Procedures Procedure Name Priority Date/Time Associated Diagnosis Comments SCAN - LABS 04/26/2016 12:00 AM SMALL ORDER CUTTER documented in this encounter Results * SCAN - LABS (04/26/2016 12:00 AM SMALL ORDER CUTTER) Narrative 04/26/2016 12:00 AM SMALL ORDER CUTTER Ordered by an unspecified provider. us Historical Provider Final Res ult documented in this encounter Visit Diagnoses Not on filedocumented in this encounter Care Teams Backend Developer Relationship Specialty Start Date End Date Abdoul Dunn MD PCP - General 07/11/18 05/20/24 Adboul Dunn MD PCP - General Family Medicine 05/21/24 01/05/25 Abdoul Dunn MD [address] [id number] PCP - General Family Medicine 01/06/25 Kerry Vyas LPN Yard Engineer 09/10/19 09/10/19 Shreya Ramirez MD [address] [place] [address] [id number] Consulting Physician Pulmonary Disease 11/04/24 Tian Davis MD [address] [place] [address] [address] [place], [place] [id number] Radiation Oncologist Radiation Oncology 12/31/24 documented as of this encounter
--- OUTSIDE RECORDS SUMMARY | 2025-03-19 21:15 | XMS_ITS | Encounter Summary ---
Author Organization [facility] Address [address] [place] [address] Care Team Providers Care Poultry Veterinarian Name Role Phone Shreya Ramirez MD Unavailable [phone] Tian Davis MD Unavailable [phone] Abdoul Dunn MD Primary Care Provider [phone] Encounter Details Date Type Department Care Team (Late st Contact Info) Description 02/13/2025 Results Follow-Up [facility] Family Medicine at [address] [place] [address] [address] CBC with auto differential, Comprehensive metabolic panel, Lipid panel, Additional followed-up results: 2 Social History Tobacco Use Types Packs/Day Years Used Date Smoking Tobacco: Former Cigarettes 0.5 50 Q uit: 05/17/2024 Smokeless Tobacco: Never Comments:Used to smoke up to 2ppd Alcohol Use Standard Drinks/Week Comments Yes 0 (1 standard drink = 0.6 oz pur e alcohol) [facility] Utilities Answer Date Recorded In the past 12 months has [employer], gas, oil, or water company threatened to [...] often do you attend chur ch or pentecostalism services? Never 05/27/2024 Do you belong to any clubs o r organizations such as lutheran groups, unions, fraternal or athletic groups, or [...] any time in the past 12 m [facility], were you homeless or living in a detention (including now)? No 05/27/2024 AUDIT-C Answer Date [...] documented as of this encounter Visit Diagnoses Not on filedocumented in this encounter Care Teams Poultry Veterinarian Relationship Specialty Start Date End Date Abdoul Dunn MD [address] [address] PCP - General Family Medicine 01/06/25 Shreya Ramirez MD [address] [place] [address] [address] [place] [address] Consulting Physician Pulmonary Disease 11/04/24 Tian Davis MD [address] [place] [address] [address] [place] [address] Radiation Oncologist Radiation Oncology 12/31/24 documented as of this encounter
--- OUTSIDE RECORDS SUMMARY | 2025-03-19 21:15 | XMS_ITS | Encounter Summary ---
Author Organization [facility] Facility Care Team Providers Care Solution Design And Analysis Manager Name Role Phone Abdoul Dunn MD Primary Care Provider [phone] Kerry Vyas LPN Unavailable [phone] Abdoul Dunn MD Primary Care Provider [phone] Shreya Ramirez MD Unavailable [phone] Tian Davis MD Unavailable [phone] Abdoul Dunn MD Primary Care Provider [phone] Encounter Details Date Type Department Care Team (Latest Contact Info) Description 06/13/2018 Orders Only [facility] CLINCONV ProviderCandice MD [address] [place] [address] Social History Tobacco Use Types Packs/Day [...] Priority Date/Time Associated Diagnosis Comments SCAN - PATHOLOGY 06/13/2018 12:0 0 AM CORRECTIONAL OFFICER CAPTAIN documented in this encounter Results * SCAN - PATHOLOGY (06/13/2018 12:00 AM CORRECTIONAL OFFICER CAPTAIN) Narrative 06/13/2018 12:00 AM CORRECTIONAL OFFICER CAPTAIN Ordered by an unspecified provider. us Historical Provider Final Res ult documented in this encounter Visit Diagnoses Not on filedocumented in this encounter Care Teams Solution Design And Analysis Manager Relationship Specialty Start Date End Date Abdoul Dunn MD PCP - General 07/11/18 05/20/24 Abdoul Dunn MD PCP - General Family Medicine 05/21/24 01/05/25 Abdoul Dunn MD [address] [id number] PCP - General Family Medicine 01/06/25 Kerry Vyas LPN Ophthalmic Technologist 09/10/19 09/10/19 Shreya Ramirez MD [address] [place] [address] [address] [place], [place] [id number] Consulting Physician Pulmonary Disease 11/04/24 Tian Davis MD [address] [place] [address] [address] [place], [place] [id number] Radiation Oncologist Radiation Oncology 12/31/24 documented as of this encounter
--- OUTSIDE RECORDS SUMMARY | 2025-03-19 21:15 | XMS_ITS | Encounter Summary ---
Author Organization [facility] Facility Care Team Providers Care Sales Representative Education Courses Name Role Phone Abdoul Dunn MD Primary Care Provider [phone] Kerry Vyas LPN Unavailable [phone] Abdoul Dunn MD Primary Care Provider [phone] Shreya Ramirez MD Unavailable [phone] Tian Davis MD Unavailable [phone] Abdoul Dunn MD Primary Care Provider [phone] Encounter Details Date Type Department Care Team (Latest Contact Info) Description 10/16/2017 Orders Only [facility] CLINCONV ProviderCandice MD [address] [place] [address] Social History Tobacco Use Types Packs/Day [...] Date/Time Associated Diagnosis Comments SCAN - LABS 10/25/2017 12:00 AM CDT documented in this encounter Results * SCAN - LABS (10/25/2017 12:00 AM CDT) Narrative 10/25/2017 12:00 AM CDT Ordered by an unspecified provider. us Historical Provider Final Res ult documented in this encounter Visit Diagnoses Not on filedocumented in this encounter Care Teams Sales Representative Education Courses Relationship Specialty Start Date End Date Abdoul Dunn MD PCP - General 07/11/18 05/20/24 Abdoul Dunn MD PCP - General Family Medicine 05/21/24 01/05/25 Abdoul Dunn MD [address] [address] PCP - General Family Medicine 01/06/25 Kerry Vyas FITNESS AND WELLNESS INSTRUCTOR Planer Chain Offbearer 09/10/19 09/10/19 Shreya Ramirez MD [address] [place] [address] [address] [place], [place] [id number] Consulting Physician Pulmonary Disease 11/04/24 Tian Davis MD [address] [place] [address] [address] [place], [place] [id number] Radiation Oncologist Radiation Oncology 12/31/24 documented as of this encounter
== END 2025-03-19 19:16 | disposition home or self-care (01) ==
PROVIDERS: Emergency Provider Nurse Practitioner; PCP Family Medicine
DX: Z20.822 Contact with and (suspected) exposure to COVID-19 (principal); J44.9 Chronic obstructive pulmonary disease, unspecified; Z99.81 Dependence on supplemental oxygen
CPT/HCPCS: 87426; 87804; 99212; G0463